=== PATIENT | female | born 1960 | race Caucasian/White ===

== ENCOUNTER 2017-12-06 00:30 | Outpatient (CLI) | payer OTHER, SELFPAY ==
--- NOTE | 2017-12-06 07:50 | DI.MAMMO_ITS ---
SYMPTOM/DIAGNOSIS: SCREENING, Z.12.31 MAMMOGRAMS: Mammograms were interpreted according to the usual protocol including computer analysis with CAD system, tomosynthesis and C view imaging. The breast tissue is of moderate radiodensity. There is no evidence of a mass. There is a tiny oil cyst in the upper outer quadrant of the right breast. There are no suspicious calcifications. SUMMARY: No evidence of malignancy, category 2. Yearly screening mammography is recommended. Breast density, category B. MQSA ASSESSMENT OF FINDINGS: Negative with benign findings. Category 2. Patient will receive a letter notifying them of these results. BI-RADS category B. There are scattered areas of fibroglandular density.
[2017-12-06 09:02] LABS: Cholesterol 194 mg/dL (50-200); HDL Cholesterol 60 mg/dL (40-60); LDL CHOLESTEROL 124 mg/dL (<100); TSH (W/Ref FT4) 2.31 uIU/mL (0.358-3.74); Triglyceride 47 mg/dL (30-150)
== END 2017-12-06 00:50 ==
PROVIDERS: PCP Nurse Practitioner Gerontology
DX: Z12.31 Encounter for screening mammogram for malignant neoplasm of breast (principal); E78.5 Hyperlipidemia, unspecified; E03.9 Hypothyroidism, unspecified; R53.83 Other fatigue; R00.2 Palpitations
CPT/HCPCS: 36415; 77063; 77067; 80061; 83721; 84443

== ENCOUNTER 2018-05-14 12:41 | Outpatient (REF) | payer OTHER, SELFPAY | END 2018-05-14 13:01 | LOC: LBN 12:41 | DX: J06.9 Acute upper respiratory infection, unspecified (principal) | CPT/HCPCS: 87449 ==

== ENCOUNTER 2018-11-29 12:12 | Outpatient (REF) | payer OTHER, SELFPAY ==
--- NOTE | 2018-11-29 11:30 | PAPFT_PTH ---
PATIENT: Valery Hendrix LOC: [facility] U#:[id number] AGE/SX: 58/F ROOM: RE11/29/[address]: Dea Morse, PhD COMPUTED TOMOGRAPHY TECHNICIAN : 1960 BED: DIS: 11/29/2018 SPEC #: [id number] RECD: 11/29/18 13:00 STATUS: NAYE REQ #: [id number] VICKIE: 11/29/18 11:[address]: Dea Morse DEPT: [facility] Cytology RECD BY: Destiney Bray ENTERED: 11/29/18 13:01 SP TYPE: PAPFT OTHR DR: Nicole Long APRN Tissues: 1 - CX/ENDOCX FOR PAP SMEARS Procedures: PAP THIN PREP/UVM Screening Comments: [id number] (CHLAMYDIA/GC) (VAGINAL HPV SENT TO [facility])
[2018-12-02 14:06] LABS: Chlamydia Result Negative; GC Result Negative; Specimen Description SEE COMMENTS
[2018-12-06 21:26] LABS: HPV High Risk type 16, PCR Negative (Negative); HPV High Risk type 18, PCR Negative (Negative); HPV other High Risk types, PCR Negative (Negative); Specimen Source VAGINAL
== END 2018-11-29 12:32 ==
LOC: LBN 12:12
PROVIDERS: Visit Provider Nurse Practitioner
DX: Z12.4 Encounter for screening for malignant neoplasm of cervix (principal); Z11.3 Encounter for screening for infections with a predominantly sexual mode of transmission; Z11.51 Encounter for screening for human papillomavirus (HPV)
CPT/HCPCS: 87491; 87591; 87624; 88142

== ENCOUNTER 2018-12-19 02:07 | Outpatient (CLI) | payer OTHER, SELFPAY ==
[2018-12-19 09:25] LABS: Calculated LDL 142 mg/dL; Cholesterol 214 mg/dL (50-200); HDL Cholesterol 59 mg/dL (40-60); TSH 2.58 uIU/mL (0.36-3.74); Triglyceride 69 mg/dL (30-150)
[2018-12-19 10:20] LABS: Hemoglobin A1C 5.7 % (4.5-6.2)
== END 2018-12-19 02:27 ==
PROVIDERS: PCP Nurse Practitioner; Visit Provider Nurse Practitioner
DX: Z13.1 Encounter for screening for diabetes mellitus (principal); E03.9 Hypothyroidism, unspecified; Z13.6 Encounter for screening for cardiovascular disorders
CPT/HCPCS: 36415; 80061; 83036; 84443

== ENCOUNTER 2019-01-06 00:54 | Outpatient (CLI) | payer OTHER, SELFPAY ==
--- NOTE | 2019-01-06 08:38 | DI.MAMMO_ITS ---
EXAM: MG MAMMO SCREENING CLINICAL HISTORY: screening, Z12.39 TECHNIQUE: Bilateral full field digital CC and MLO mammographic images were obtained with 3D tomosyn thesis and utilizing computer aided detection (CAD). COMPARISON: Available for comparison. FINDINGS: Masses/Architectural Distortion: None seen. Microcalcifications: No suspicious pleomorphic-type are seen. Skin Thickening/Nipple Retraction: None. IMPRESSION: 1. No significant interval change with no specific features of malignancy noted. 2. Unless there is more urgent need, screening mammography is recommended, as per [place] [employer] guidelines. ACR BI-RAD Category- 1 Negative Breast Density - Category B - Scattered areas of fibroglandular density A negative radiographic report should not delay biopsy if a dominant or clinically suspicious mass is present. Up to ten percent of cancers are not identified on mammography. A negative report may reinforce clinical impression. Adenosis and dense breasts may obscure an underlying neoplasm. False positive reports average 6 to 10%. Patient will receive a letter notifying them of these results.
== END 2019-01-06 01:14 ==
PROVIDERS: PCP Nurse Practitioner; Visit Provider Nurse Practitioner
DX: Z12.31 Encounter for screening mammogram for malignant neoplasm of breast (principal)
CPT/HCPCS: 77063; 77067

== ENCOUNTER 2019-01-20 01:04 | Outpatient (CLI) | payer OTHER, SELFPAY ==
--- NOTE | 2019-01-20 16:24 | DI.DEXA_ITS ---
EXAM: XR DEXA BONE DENSITY W/WO KULDIP INDICATION: screen osteoporosis, Z13.820, preventative health care. COMPARISON: No exams were available for comparison FINDINGS: The KULDIP image shows no evidence of compression fractures. The bone mineral density measurements of t he lumbar spine correspond to a total T-score of -1.8, in the osteopenic range. The bone mineral den sity measurements of the left hip correspond to a total T-score of -1.4 and a femoral neck T-score of -2.4, in the osteopenic range. The bone mineral density measurements of the left forearm correspond to a T-score of the distal 3rd of -0.5, in the normal range. IMPRESSION: Osteopenia of the lumbar spine and left hip. Normal bone mineral density of the left forearm.
== END 2019-01-20 01:24 ==
PROVIDERS: PCP Nurse Practitioner; Visit Provider Nurse Practitioner
DX: Z00.00 Encounter for general adult medical examination without abnormal findings (principal); M85.88 Other specified disorders of bone density and structure, other site
CPT/HCPCS: 77080

== ENCOUNTER 2019-12-22 03:35 | Outpatient (CLI) | payer MEDICAID, SELFPAY ==
[2019-12-24 22:07] LABS: Patient Race White; SARS-CoV-2 RNA Undetected (Undetected); SARS-CoV-2 Specimen Source Nasal
== END 2019-12-22 03:55 ==
PROVIDERS: PCP Nurse Practitioner; Visit Provider Nurse Practitioner
DX: Z11.59 Encounter for screening for other viral diseases (principal)
CPT/HCPCS: U0003

== ENCOUNTER 2020-02-17 02:29 | Outpatient (CLI) | payer MEDICAID, SELFPAY ==
[2020-02-17 08:47] LABS: Hemoglobin A1C 5.3 % (<5.7)
[2020-02-17 09:32] LABS: CREATININE 0.73 mg/dL (0.55-1.02); Calculated LDL 139 mg/dL (<100); Cholesterol 218 mg/dL (<200); HDL Cholesterol 60 mg/dL (40-60); TSH 2.06 uIU/mL (0.36-3.74); Triglyceride 99 mg/dL (<150)
== END 2020-02-17 02:49 ==
PROVIDERS: PCP Nurse Practitioner; Visit Provider Nurse Practitioner
DX: E03.9 Hypothyroidism, unspecified (principal); Z13.6 Encounter for screening for cardiovascular disorders; Z13.1 Encounter for screening for diabetes mellitus; Z13.220 Encounter for screening for lipoid disorders
CPT/HCPCS: 36415; 80061; 82565; 83036; 84443

== ENCOUNTER 2020-02-18 03:05 | Outpatient (CLI) | payer MEDICAID, SELFPAY ==
--- NOTE | 2020-02-18 15:51 | DI.MAMMO_ITS ---
EXAM: MG MAMMO SCREENING CLINICAL HISTORY: screening,Z12.39. TECHNIQUE: Bilateral full field digital CC and MLO mammographic images were obtained with 3D tomosyn thesis and utilizing computer aided detection (CAD). COMPARISON: Prior mammograms dating back to 2010, the most recent being January 2019. FINDINGS: There are no CAD designations. Benign peripherally calcified oil cyst is again noted anteriorly in the right breast. This has been present since 2016. there is no significant architectural distortion nor skin thickening-retraction. IMPRESSION: No radiographic evidence of malignancy. BI-RADS Category 1 - Negative Breast Density - Category B - Scattered areas of fibroglandular density Breast density Category C or D implies that the patient has dense breast tissue. Dense breast tissue can make it harder to find cancer on a mammogram. Dense breast tissue is also associated with an incr eased risk of breast cancer. This information about the result of the mammogram report was provided to the patient to raise their awareness. Use this report when you speak with the patient about their risks for breast cancer, which includes their family history. At that time, you may recommend additional screening tests (Ultrasoun d or MRI) as these tests may add significant information. A negative radiographic report should not delay biopsy if a dominant or clinically suspicious mass is present. Up to ten percent of cancers are not identified on mammography. A negative report may reinforce clinical impression. Adenosis and dense breasts may obscure an underlying neoplasm. False positive reports average 6 to 10%. Patient will receive a letter notifying them of these results.
== END 2020-02-18 03:25 ==
PROVIDERS: PCP Nurse Practitioner; Visit Provider Nurse Practitioner
DX: N60.01 Solitary cyst of right breast (principal); Z12.39 Encounter for other screening for malignant neoplasm of breast
CPT/HCPCS: 77063; 77067

== ENCOUNTER 2020-03-16 06:44 | Day surgery (SDC) | payer MEDICAID, SELFPAY ==
[2020-03-16 07:23] VITALS: BP 132/78; PULSE 80; RESP 16; TEMP 36.4; O2SAT 99
--- NOTE | 2020-03-16 07:30 | PDOC.DSDIS_ITS ---
Discharge Plan Disposition Patient Disposition: HOME Condition: Good Discharge Details Reason For Visit: Right middle and ring trigger fingers Attending Provider: Yony Null Primary Care Provider: Dea Morse Home Meds and New Rx's Prescriptions: Continued ibuprofen 600 mg tablet 600 mg PO QID PRN (Reason: pain/fever) Qty: 120 RF: 0 lorazepam 0.5 mg tablet 0.5 mg PO QHS PRN (Reason: anxiety) Qty: 30 RF: 0 lisinopril 10 mg tablet 10 mg PO DAILY Qty: 30 RF: 0 levothyroxine 50 mcg tablet 50 mcg PO DAILY Qty: 90 RF: 4 calcium 600 mg Capsule 1,200 mg PO RF: 0 melatonin 3 mg Tablet 3 mg PO HS PRNRF: 0 Discharge Instructions Stand Alone Forms: Tennille Howard Finger Release Referrals: Yony Null MD [ [facility] STAFF PHYSICIAN] - Activity:: Elevate Remove Dressings/Wound Care:: 48 hours Shower/Bathe:: 48 hours Diet:: As Tolerated Discharge Orders Discharge Orders: Discharge Order (Routine); Ordered 03/16/20 Ordered By: Karen Shukla DS: Diagnosis Discharge Diagnosis (1) Trigger finger: Status: Acute
[2020-03-16] MEDS: Sodium Bicarbonate 50 MEQ/50 ML VIAL (08:10)
--- NOTE | 2020-03-16 08:30 | ROE_ITS ---
Date of service: 03/16/20 Time of Service: 08:30 Operative Note Operative Note DATE OF PROCEDURE: 03/16/20 PRE-OP DIAGNOSIS: Left Middle and Ring Finger Trigger Fingers POST-OP DIAGNOSIS: same PROCEDURE: Trigger Finger Release - Left Middle and Ring Fingers SURGEON: Yony Null ANESTHESIA: local ESTIMATED BLOOD LOSS: 5 PATHOLOGY: none sent COMPLICATIONS: None Patient was transported to: same day Patient's condition: stable Indications: I have seen Saskai in clinic for symptoms of a trigger finger. The catching, clicking, locking, and pain limited function. The diagnosis of trigger finger of the middle and ring fingers was evident. The symptoms had not responded to conservative measures. I discussed trigger finger release with the patient. I reviewed the risks of the procedure to include, but not limited to, bleeding, infection, pain, stiffness, incomplete release, damage to nerves or vessels, continued catching, recurrence. Despite these risks, the patient elected to proceed. Findings: There was a tightened A1 vanessa which was released. The flexor tendons were inspected and the patient was able to move the finger without any catching, clicking, or locking. Procedure Description: Saskia was greeted in the preoperative holding area where the correct side was identified and marked. The consent was reviewed with the patient and signed. All questions were answered. She was taken back to the operating room. The patient was placed into the supi ne position on the operating room table with the right arm on an arm board. All bony prominences were well padded. No prophylactic antibiotics were administered since this was a clean, elective hand surgical case. The right arm was then prepped with Chloraprep and draped in a standard fashion with stockinette and extremity drape. A timeout to confirm correct identity, side and site, procedure, allergies, anesthesia, and medical concerns was performed. The surgical site was marked as a longitudinal incision directly over the A1 vanessa of the involved digit. This was confirmed with palpation during finger flexion. This area, overlying the metacarpal heads of the ring and middle fingers, was then anesthetized with 1% Lidocaine. The patient tolerated this well and once the anesthetic had setup, the procedure began. She was very anxious and squirming during all parts, including injection, although she denied any pain. Starting with the ring finger, a longitudinal incision was made through skin only, approximately 1cm. The deep tissues were dissected bluntly. Once the A1 vanessa and flexor tendons were identified the soft tissue including neurovascular structures were retracted medially and laterally. There were no crossing structures over the A1 vanessa. The proximal edge of the vanessa was identified and the vanessa was incised with tenotomy scissors. There was a relea se of the tendons once this was fully released. The tendons were then removed from the wound and inspected. The tendons were then returned and the patient was asked to move the finger into deep flexion and back to extension. She had a hard time making a fist but I was able to passively assist her motion and there was no recreation of the pre-operative symptoms. The hand was then once more inspected for any A0 vanessa or area of possible constriction. Attention was then turned to the middle finger. A longitudinal incision was made through skin only, approximately 1cm. The deep tissues were dissected bluntly. Once the A1 vanessa and flexor tendons were identified the soft tissue including neurovascular structures were retracted medially and laterally. There were no crossing structures over the A1 vanessa. The proximal edge of the vanessa was identified and the vanessa was incised with tenotomy scissors. There was a release of the tendons once this was fully released. The tendons were then removed from the wound and inspected. Excess synovium was resected. The tendons were then returned and the patient was asked to move the finger into deep flexion and back to extension. There was no recreation of the pre- operative symptoms. The hand was then once more inspected for any A0 vanessa or area of possible constriction. The wound was then irrigated and the skin was closed with a 4-0 Nylon. This was dressed with gauze and a Conform dressing. The patient tolerated the procedure well and was returned to the Same Day Surgery area in a stable condition suffering no known complication.
== END 2020-03-16 08:59 | disposition home or self-care (01) ==
PROVIDERS: PCP Nurse Practitioner; Visit Provider Student in an Organized Health Care Education/Training Program
PROC: (CPT 26055; principal; 2020-03-16 08:15)
DX: M65.331 Trigger finger, right middle finger (principal); M65.341 Trigger finger, right ring finger
CPT/HCPCS: 26055

== ENCOUNTER 2021-01-12 02:32 | Outpatient (CLI) | payer MEDICAID, SELFPAY ==
[2021-01-12 10:50] LABS: CREATININE 0.8 mg/dL (0.55-1.02); Calculated LDL 183 mg/dL (<100); Cholesterol 256 mg/dL (<200); HDL Cholesterol 60 mg/dL (40-60); Potassium 4.2 mmol/L (3.5-5.1); TSH 2.81 uIU/mL (0.36-3.74); Triglyceride 69 mg/dL (<150)
== END 2021-01-12 02:33 | disposition home or self-care (01) ==
LOC: LBO 02:32
PROVIDERS: PCP Nurse Practitioner; Visit Provider Nurse Practitioner
DX: I10 Essential (primary) hypertension (principal); Z13.6 Encounter for screening for cardiovascular disorders; E03.9 Hypothyroidism, unspecified
CPT/HCPCS: 36415; 80061; 82565; 84132; 84443

== ENCOUNTER 2021-03-02 00:53 | Outpatient (CLI) | payer MEDICAID, SELFPAY ==
--- NOTE | 2021-03-02 11:20 | DI.MAMMO_ITS ---
Exam(s) MAMMO SCREENING EXAM: MAMMO SCREENING CLINICAL HISTORY: screening, Z12.39. TECHNIQUE: Bilateral full field digital CC and MLO mammographic images were obtained with 3D tomosyn thesis and utilizing computer aided detection (CAD). COMPARISON: Prior mammograms were reviewed, the most recent being February 2020. FINDINGS: There are no new spiculated masses nor malignant appearing microcalcification groups. Peripherally calcified oil cyst in the right breast is unchanged. There is no significant architectural distortion nor skin thickening-retraction. IMPRESSION: No radiographic evidence of malignancy. BI-RADS Category 1 - Negative Breast Density - Category B - Scattered areas of fibroglandular density Breast density Category C or D implies that the patient has dense breast tissue. Dense breast tissue can make it harder to find cancer on a mammogram. Dense breast tissue is also associated with an incr eased risk of breast cancer. This information about the result of the mammogram report was provided to the patient to raise their awareness. Use this report when you speak with the patient about their risks for breast cancer, which includes their family history. At that time, you may recommend additional screening tests (Ultrasoun d or MRI) as these tests may add significant information. A negative radiographic report should not delay biopsy if a dominant or clinically suspicious mass is present. Up to ten percent of cancers are not identified on mammography. A negative report may reinforce clinical impression. Adenosis and dense breasts may obscure an underlying neoplasm. False positive reports average 6 to 10%. Patient will receive a letter notifying them of these results.
== END 2021-03-02 01:13 ==
PROVIDERS: PCP Nurse Practitioner; Visit Provider Nurse Practitioner
DX: Z12.31 Encounter for screening mammogram for malignant neoplasm of breast (principal)
CPT/HCPCS: 77063; 77067

== ENCOUNTER 2021-12-29 09:38 | Emergency (ER) | payer MEDICAID, SELFPAY ==
[2021-12-29 09:39] VITALS: BP 135/75; PULSE 85; RESP 17; TEMP 36.8; O2SAT 98
--- NOTE | 2021-12-29 09:45 | DI.CT_ITS ---
Exam(s) CT HEAD WO EXAM: CT HEAD WO CLINICAL HISTORY: Headache. TECHNIQUE: Imaging Protocol: Axial computed tomography images with coronal and sagittal reformatted images were created and reviewed COMPARISON: No exams were available for comparison FINDINGS: The ventricular system is normal in appearance. No evidence of acute intracranial hemorrhage, mass effect, or midline shift. The orbital structures are unremarkable. The temporal bone structures appear intact. Calvarium: Normal. Visualized Paranasal sinuses/Mastoids: Clear. IMPRESSION: Normal cranial CT. RADIATION DOSE DELIVERED: Total DLP Total DLP DATA REPOSITORY: All CT scans at this facility are submitted to the National Radiology Data Registry (NRDR) Dose Index Registry (DIR) with the [employer] (ACR). RADIATION OPTIMIZATION: All CT scans at this facility use at least one of these dose optimization te chniques: automated exposure control; mA and/or kV adjustment per patient size (includes targeted exa ms where dose is matched to clinical indication); or iterative reconstruction.
--- NOTE | 2021-12-29 09:57 | W.ED.GENAD ---
Discharge Plan Disposition Patient Disposition: Home Condition: Stable Discharge Details Clinical Impression: Headache Primary Care Provider: Dea Morse ED Provider: Vandana Tejeda Home Meds and New Rx's Prescriptions: Continued ibuprofen 600 mg tablet 600 mg PO QID PRN (Reason: pain/fever) Qty: 120 0RF amlodipine 10 mg tablet 10 mg PO DAILY Qty: 90 4RF Hold Instructions: start holding 07/19/20 to see if Lisinopril will control BP hydrochlorothiazide 25 mg tablet 25 mg PO DAILY Qty: 90 4RF Hold Instructions: start holding 07/19/20 to see if Lisinopril control BP levothyroxine 50 mcg tablet 50 mcg PO DAILY Qty: 90 4RF metoprolol succinate 50 mg tablet extended release 24 hr 50 mg PO DAILY Qty: 90 3RF lorazepam 0.5 mg tablet 0.5 mg PO QHS PRN (Reason: anxiety) Qty: 30 0RF calcium 600 mg Capsule 1,200 mg PO melatonin 3 mg Tablet 3 mg PO HS PRN Discharge Instructions Instructions: General Headache (ED) Additional Instructions: Please discuss your headaches with your primary care provider. Discharge keep a headache journal. Headaches can be caused by hormones, lack of sleep, stress and other things. CT of your head is within normal limits. Follow up with primary care provider in 3-5 days. Return to ED sooner if any worsening or concerns. Increase oral fluids. Please take Tylenol or Ibuprofen with food every 4-6 hours as needed for pain and swelling. Referrals: Dea Morse, SOFTWARE DATABASE ARCHITECT [Primary Care Provider] - 5 days Discharge Data Discharge Date/Time-TO BE ENTERED AT DEPARTURE: 12/29/21 10:52 Medical Decision Making 61-year-old female presents to the ER with chief complaint of headache. Patient reports that she woke up at 6 AM this morning with a right posterior occipital headache which radiates to her right parietal and temporal scalp and into her right eye. She has no neurodeficits. She denies any nausea vomiting, no visual disturbances no history of head trauma. She reports this has been on and off for the last few weeks. No history of migraines. She reports that the headache is gone at this moment after taking some ibuprofen. CT head ordered. CT WNL. Kayden results with patient who verbalized understanding. Discussed keeping a headache journal and following up with her primary care provider. Discussed red flags on which to return to the ER. This text was generated using RunTitle dictation system, please disregard any oddities of phrase or misspellings. Medical Records Medical records reviewed: Yes I reviewed the patient's medical records. Imaging Data Radiologic Study: Imaging: CT Scan Radiologist's impression: FINDINGS: Brain: Normal. No hemorrhage. Unremarkable white matter. No mass effect. Cerebral ventricles: No ventriculomegaly. Paranasal sinuses: Visualized sinuses are unremarkable. No fluid levels. Mastoid air cells: Visualized mastoid air cells are well aerated. Bones/joints: Unremarkable. No acute fracture. Soft tissues: Unremarkable. IMPRESSION: No acute intracranial abnormality. Thank you for allowing us to participate in the care of your patient. Dictated and Authenticated by: Shannon Garvin MD Sign Out No HPI General Mode of arrival: ambulatory. Date/Time Provider Initiated Documentation: 12/29/21 09:45. Limitations to Documentation: no limitations. Information obtained by: patient, RN notes reviewed and old records reviewed. HPI Narrative: 61-year-old female presents to the ER with chief complaint of headache. Patient reports that she woke up at 6 AM this morning with a right posterior occipital headache which radiates to her right parietal and temporal scalp and into her right eye. She has no neurodeficits. She denies any nausea vomiting, no visual disturbances no history of head trauma. She reports this has been on and off for the last few weeks. No history of migraines. She reports that the headache is gone at this moment after taking some ibuprofen. No focal neurodeficits noted. Related Data Home Medications Medication Instructions Recorded Confirmed ibuprofen 600 mg tablet 600 mg PO QID PRN pain/fever #120 05/14/18 01/20/21 tabs calcium 600 mg capsule 1,200 mg PO 03/16/20 01/20/21 melatonin 3 mg tablet 3 mg PO HS PRN 03/16/20 01/20/21 amlodipine 10 mg tablet 10 mg PO DAILY #90 tabs 01/20/21 01/20/21 hydrochlorothiazide 25 mg tablet 25 mg PO DAILY #90 tabs 01/20/21 01/20/21 levothyroxine 50 mcg tablet 50 mcg PO DAILY #90 tab-caps 01/20/21 01/20/21 lorazepam 0.5 mg tablet 0.5 mg PO QHS PRN anxiety #30 tabs 01/20/21 01/20/21 metoprolol succinate 50 mg 50 mg PO DAILY #90 tabs 01/20/21 01/20/21 tablet,extended release 24 hr Previous Rx's Medication Instructions Recorded ibuprofen 600 mg tablet 600 mg PO QID PRN pain/fever #120 05/14/18 tabs amlodipine 10 mg tablet 10 mg PO DAILY #90 tabs 01/20/21 hydrochlorothiazide 25 mg tablet 25 mg PO DAILY #90 tabs 01/20/21 levothyroxine 50 mcg tablet 50 mcg PO DAILY #90 tab-caps 01/20/21 lorazepam 0.5 mg tablet 0.5 mg PO QHS PRN anxiety #30 tabs 01/20/21 metoprolol succinate 50 mg 50 mg PO DAILY #90 tabs 01/20/21 tablet,extended release 24 hr Allergies Allergy/AdvReac Type Severity Reaction Status Date / Time lisinopril AdvReac Mild cough Verified 01/20/21 13:18 General Stated Complaint: Headache FRITZ: 4 Review of Systems All systems reviewed & are unremarkable except as noted in HPI and below Constitutional Constitutional: Reports as per HPI, Denies fever(s) and Reports headache(s) ENT Ears, Nose, Mouth, and Throat: Reports headache(s) Neurologic Neurologic: Reports headache(s) PFSH All Active Problems (Updated 12/29/21 @ 10:46 by Vandana Tejeda NP) Headache (Acute) GERD (gastroesophageal reflux disease) (Chronic) Trigger finger (Acute) Right ring trigger finger Right middle trigger finger S/P release of both fingers: 03/16/2020 Hyperlipidemia (Acute) CVR4.7% 02/2020. 5.18% 01/25 HTN (hypertension) (Chronic) Vaginal dryness (Acute 05/05/15) Panic attacks (Acute) Palpitations (Acute) Hypothyroidism (Acute 01/13/13) Anxiety (Chronic 01/13/13) Medical History Carpal tunnel syndrome right surgically corrected bilateral Female infertility Surgical History section Diagnostic Laproscopy for pelvic pain Open Carpal Tunnel release right,left Family History Mother Essential hypertension Hyperlipidemia Father , AGE 64 Diabetes Heart disease Prostate cancer Sister No problems noted. Brother , 60 Stroke Hypertension COPD (chronic obstructive pulmonary disease) Brother No problems noted. Daughter No problems noted. Maternal Grandfather No problems noted. Paternal Grandfather No problems noted. Maternal Grandmother , age 62 Stroke Paternal Grandmother , age 83 No problems noted. Social History Smoking/Tobacco Use Status: Never Second Hand Exposure: Yes Smoking risk assessment performed?: Yes Alcohol Intake: current Alcohol Intake frequency: a few times a month Alcohol type: beer, wine and hard liquor Drug use: Never Substance use type: does not use Caregiver/Support person: No Household members: spouse Housing: house Communication Needs: None Do you need help understanding health information?: Never current occupation: CUSTOMER SERVICE Pets and animals: No Sexually active: No Do you think of yourself as: straight/heterosexual Current gender identity: female What is your relationship status?: How often do you talk on the phone with friends or family?: three or more times per week How often do you get together with friends or relatives?: twice per week How often do you attend anabaptism or anglican services?: decline to answer Do you belong to any clubs or organized social groups?: no Panel score (0-1 are the most socially isolated patients): 2 What type of physical activity do you participate in: decline to answer Duration: < 15 minutes/day Frequency: daily Angeline/Evangelical: None Special angeline needs: No Seatbelt use: always Drive intox or ride w/intox pile driver operator: No Do you feel safe at home: Yes Do you feel safe in your relationship?: Yes Victim of physical abuse: No Victim of emotional abuse: No Victim of sexual abuse: No Would you like helpful sources: No Exam Narrative Exam Narrative: Constitutional: Alert and oriented x3. Appears stated age. Normal body habitus. Head: Normocephalic, no trauma. Eyes: Pupils PERRL, Red reflex noted, EOM's intact. Eyelids symmetrical without lesions, discharge, or swelling. ENT: Bilateral TM's WNL, External ear normal to inspection, no mastoid TTP, swelling, or erythema, Nasal turbinates WNL, no nasal discharge. Normal dentition, Posterior pharynx WNL, no exudate. Chest: RRR, Normal S1, S2, distal pulses intact. Resp: Lungs clear to auscultation bilaterally, no wheezes, rales, or rhonchi. Abdomen: Soft, non-distended, Normoactive bowel sounds all 4 quads. Musculoskeletal: Normal gait, 5/5 strength to all four extremities. Skin: No suspicious rashes or lesions. Capillary refill less than 2 sec. Neurologic: Cranial nerves II-XII intact. Alert and oriented x 3. Motor: No deficits noted. Sensory: Intact bilaterally all 4 extremities. Reflexes: DTR's intact bilaterally.. Hematologic/Lymphatic: No ecchymosis, no lymphadenopathy. Course Vital Signs Vital signs: Vital Signs Temperature 36.8 C 12/29/21 09:39 Pulse 85 12/29/21 09:39 Respiratory Rate 17 12/29/21 09:39 Blood Pressure 135/75 12/29/21 09:39 Pulse Oximetry 98 12/29/21 09:39 Temperature 36.8 C 12/29/21 09:39 Temperature Source Temporal Artery Scan 12/29/21 09:39 Pulse 85 12/29/21 09:39 Respiratory Rate 17 12/29/21 09:39 Respiratory Effort 12/29/21 09:44 Blood Pressure 135/75 12/29/21 09:39 Blood Pressure Position Sitting 12/29/21 09:39 Pulse Oximetry 98 12/29/21 09:39 Oxygen Delivery Method Room Air 12/29/21 09:39 Oxygen Flow Rate 0 12/29/21 09:39 Pain Level 0 12/29/21 09:44
--- NOTE | 2021-12-29 10:41 | DI.VRAD_ITS ---
PROCEDURE INFORMATION: Exam: CT Head Without Contrast Exam date and time: 12/29/2021 10:09 AM Age: 61 years old Clinical indication: Pain; Headache TECHNIQUE: Imaging protocol: Computed tomography of the head without contrast. COMPARISON: No relevant prior studies available. FINDINGS: Brain: Normal. No hemorrhage. Unremarkable white matter. No mass effect. Cerebral ventricles: No ventriculomegaly. Paranasal sinuses: Visualized sinuses are unremarkable. No fluid levels. Mastoid air cells: Visualized mastoid air cells are well aerated. Bones/joints: Unremarkable. No acute fracture. Soft tissues: Unremarkable. IMPRESSION: No acute intracranial abnormality. Dictated and Authenticated by: Shannon Garvin MD. Ordering:AIMEE Ross MD
== END 2021-12-29 10:52 | disposition home or self-care (01) ==
PROVIDERS: Emergency Provider Registered Nurse Emergency; PCP Nurse Practitioner
DX: R51.9 Headache, unspecified (principal)
CPT/HCPCS: 99284; 70450; 99283

== ENCOUNTER 2022-01-27 00:57 | Outpatient (CLI) | payer MEDICAID, SELFPAY ==
[2022-01-27 12:21] LABS: HCT 38.9 % (36.0-46.0); MCH 27.9 pg (27.0-33.0); MCHC 33.4 % (32.0-36.0); MCV 84 fL (80-95); MPV 12.2 fL (8.0-11.0); Platelet Count 262 10^3/uL (130-400); RBC 4.66 10^6/uL (3.93-5.22); RDW 13.4 % (11.7-14.6); WBC 6.68 10^3/uL (4.4-10.8)
[2022-01-27 12:48] LABS: Hemoglobin A1C 5.3 % (<5.7)
[2022-01-27 13:02] LABS: ALT 36 U/L (14-59); AST 25 U/L (15-37); Albumin 4.1 g/dL (3.4-5.0); Alkaline Phosphatase 94 U/L (46-116); Anion Gap 6.6 mmol/L (3-11); BUN 21 mg/dL (7-18); Bilirubin, Total 0.3 mg/dL (0.2-1.0); CO2 32.4 mmol/L (21.0-32.0); CREATININE 0.8 mg/dL (0.55-1.02); Calcium 9.7 mg/dL (8.5-10.1); Calculated LDL 69 mg/dL (<100); Chloride 102 mmol/L (98-107); Cholesterol 146 mg/dL (<200); Glucose 90 mg/dL (74-106); HDL Cholesterol 61 mg/dL (40-60); Sodium 141 mmol/L (136-145); TSH (W/Ref FT4) 1.49 uIU/mL (0.36-3.74); Total Protein 7.9 g/dL (6.4-8.2); Triglyceride 81 mg/dL (<150)
== END 2022-01-27 00:58 | disposition home or self-care (01) ==
LOC: LOS 00:57
PROVIDERS: PCP Nurse Practitioner Family; Visit Provider Nurse Practitioner Family
DX: I10 Essential (primary) hypertension (principal); E03.9 Hypothyroidism, unspecified; F41.8 Other specified anxiety disorders; E78.5 Hyperlipidemia, unspecified; R00.2 Palpitations; K21.9 Gastro-esophageal reflux disease without esophagitis; R51.9 Headache, unspecified
CPT/HCPCS: 36415; 80053; 80061; 85027; 83036; 84443

== ENCOUNTER 2022-05-11 02:28 | Outpatient (CLI) | payer MEDICAID, SELFPAY ==
--- NOTE | 2022-05-11 06:30 | DI.MAMMO_ITS ---
Exam(s) MAMMO SCREENING EXAM: MAMMO SCREENING CLINICAL HISTORY: screening,z12.39. TECHNIQUE: Bilateral full field digital CC and MLO mammographic images were obtained with 3D tomosyn thesis and utilizing computer aided detection (CAD). COMPARISON: Prior mammograms were reviewed. FINDINGS: There has been no significant change in the appearance and distribution of the fibroglandular tissue. There are no CAD designations. There are no new spiculated masses nor malignant appearing microcalcification groups. Benign peripherally calcified oil cyst in the right breast is again noted. There is no significant architectural distortion nor skin thickening-retraction. IMPRESSION: No radiographic evidence of malignancy. BI-RADS Category 1 - Negative Breast Density - Category B - Scattered areas of fibroglandular density Breast density Category C or D implies that the patient has dense breast tissue. Dense breast tissue can make it harder to find cancer on a mammogram. Dense breast tissue is also associated with an incr eased risk of breast cancer. This information about the result of the mammogram report was provided to the patient to raise their awareness. Use this report when you speak with the patient about their risks for breast cancer, which includes their family history. At that time, you may recommend additional screening tests (Ultrasoun d or MRI) as these tests may add significant information. A negative radiographic report should not delay biopsy if a dominant or clinically suspicious mass is present. Up to ten percent of cancers are not identified on mammography. A negative report may reinforce clinical impression. Adenosis and dense breasts may obscure an underlying neoplasm. False positive reports average 6 to 10%. Patient will receive a letter notifying them of these results.
== END 2022-05-11 02:48 ==
LOC: DI 02:29
PROVIDERS: PCP Nurse Practitioner Family; Visit Provider Nurse Practitioner Family
DX: Z12.31 Encounter for screening mammogram for malignant neoplasm of breast (principal); N60.01 Solitary cyst of right breast
CPT/HCPCS: 77063; 77067

== ENCOUNTER 2022-11-20 09:09 | Day surgery (SDC) | payer MEDICAID, SELFPAY ==
--- NOTE | 2022-11-19 16:33 | W.PM.DSUDISC ---
Date of service: 11/20/22 Time of Service: 11:24 Discharge Plan Disposition Patient Disposition: Home Condition: Good Discharge Details Reason For Visit: Screening colonoscopy Attending Provider: Valdez Dykes Primary Care Provider: Everett Sosa Home Meds and New Rx's Prescriptions: Continued ibuprofen 600 mg tablet 600 mg PO QID PRN (Reason: pain/fever) Qty: 120 0RF lorazepam 0.5 mg tablet 0.5 mg PO QHS PRN (Reason: anxiety) Qty: 30 0RF levothyroxine 50 mcg tablet 50 mcg PO DAILY Qty: 90 4RF cholecalciferol (vitamin D3) 50 mcg (2,000 unit) capsule 50 mcg PO DAILY magnesium 250 mg tablet 250 mg PO DAILY hydrochlorothiazide 25 mg tablet 25 mg PO DAILY Qty: 90 4RF Hold Instructions: start holding 07/19/20 to see if Lisinopril control BP amlodipine 10 mg tablet 10 mg PO DAILY Qty: 90 4RF Hold Instructions: start holding 07/19/20 to see if Lisinopril will control BP metoprolol succinate 50 mg tablet extended release 24 hr 50 mg PO DAILY Qty: 90 3RF simvastatin 20 mg tablet 20 mg PO QHS Qty: 90 3RF calcium 600 mg Capsule 1,200 mg PO DIRECTED melatonin 3 mg Tablet 3 mg PO HS PRN acetaminophen [Acetaminophen Extra Strength] 500 mg tablet 1,000 mg PO ONCE Discontinued polyethylene glycol 3350 17 gram/dose powder 238 g PO ONCE Qty: 238 0RF Rx Instructions: take per colonoscopy instructions bisacodyl [Dulcolax (bisacodyl)] 5 mg tablet,delayed release (DR/EC) 5 mg PO ONCE Qty: 4 0RF Rx Instructions: take per colonoscopy instructions Discharge Instructions Instructions: Colorectal Polyps (GEN) Additional Instructions: Valery, we were able to complete your colonoscopy without any difficulties today. As you probably recall, I mentioned that I did remove a polyp. It was quite small. I removed it completely. I will certainly be in touch when I have the results of the polyp report. In the meantime, if you have any questions at all please do not hesitate to call. 1. If tolerated, consume a soft, low fiber diet for 1-2 days. 2[address] Do not drive, drink alcohol, operate machinery, make critical decisions, or do activities that require coordination or balance for 24 hours. 3. Because air was put into your colon during the procedure, expelling air from your rectum (passing gas or farting) is normal. 4. You may not have a bowel movement for 1-3 days because of the colonoscopy prep. This is normal. 5. Go directly to the emergency room if you notice any of the following: Develop chills (warm to touch), or if you have a thermometer and your temperature is above 101 Difficulty breathing or difficultly swallowing Persistent vomiting Severe abdominal pain, other than gas cramps Severe chest pain Black, tarry stools Any bleeding ? exceeding one tablespoon 6. Call your physician if the site where your intravenous was started becomes red, swollen, painful, and warm to touch. 7. Your physician has reviewed your pre-procedure medications. Please continue to take those medications as previously ordered. You will be given specific information/education regarding any changes to your medications before leaving. Activity:: Activity as Tolerated Diet:: As Tolerated Discharge Orders Discharge Orders: Discharge Order (Routine); Ordered 11/19/22 Ordered By: Valdez Dykes DS: Diagnosis Discharge Diagnosis (1) Screen for colon cancer: Status: Acute Asessment and Plan: I will follow-up on polypectomy results
--- NOTE | 2022-11-19 16:35 | W.COLOREPORT ---
Date of service: 11/20/22 Time of Service: 11:25 Colonoscopy Report Date of procedure: 11/20/22 Pre-op diagnosis general: Screening colonoscopy and internal hemorrhoids Post-op diagnosis procedure note: other (Rectal polyp) Procedure: Colonoscopy with polypectomy Surgeon: Valdez Dykes Anesthesia Type: General:No Airway Estimated blood loss (mL): 3 Pathology: other (0.25 cm rectal polyp) Complications: None Disposition: same day Indications: Valery is a 62 year old woman who needs a screening colonoscopy Prep: Miralax/Dulcolax Procedure Start Time: 10:38 Procedure End Time: 10:52 Retraction Time: 7 Findings: 0.25 cm rectal polyp Procedure Description: After the induction of monitored anesthetic care, and with the patient in left lateral decubitus position, I began by performing an external anorectal exam.? Perineum and skin were normal, as was the anal verge.? There was no evidence of external hemorrhoids.? Next, I performed a digital rectal exam.? I did not appreciate any abnormal findings.? Next, I advanced a colonoscope into the rectal vault.? I performed retroflexion.? There are grade 2 internal hemorrhoids. The hemorrhoid burden is small.? Using insufflation, I then advanced the colonoscope beyond the rectal folds and into the sigmoid colon before advancing towards the cecum.? The quality of the prep was excellent.? The scope was noted to be in the cecum by identification of the ileocecal valve and appendiceal orifice.? I then began withdrawing the colonoscope using repeated irrigation as necessary for full evaluation of the colonic mucosa. ?Once the scope was withdrawn to the level of the rectum, great care was taken to examine portions of the rectal folds.? Within the upper portion of the rectal vault was a 0.25 cm sessile polyp. I removed this with cold forceps. There was minimal bleeding. Finally, the scope was withdrawn and the patient was brought to the same-day surgery recovery unit as the anesthetic wore off. ?The findings and instructions were shared with the patient prior to discharge.
--- NOTE | 2022-11-20 06:18 | W.ANESPRE ---
General Info Date of Service Date Performed: 11/20/22 Height: 5 ft 3 in Weight: 75.977 kg Body Mass Index (BMI): 29.7 Surgical Procedure: Operation Date: 11/20/22 10:40 Proposed Procedure Side Surgeon p Hemorrhoid Banding Valdez Dykes MD Meds Allergies and Home Medications Allergies Allergy/AdvReac Type Severity Reaction Status Date / Time lisinopril AdvReac Mild cough Verified 11/17/22 12:51 Home Medication Medication Instructions Recorded ibuprofen 600 mg tablet 600 mg PO QID PRN pain/fever #120 05/14/18 tabs calcium 600 mg capsule 1,200 mg PO DIRECTED 03/16/20 melatonin 3 mg tablet 3 mg PO HS PRN 03/16/20 lorazepam 0.5 mg tablet 0.5 mg PO QHS PRN anxiety #30 tabs 01/20/21 levothyroxine 50 mcg tablet 50 mcg PO DAILY #90 tab-caps 01/24/22 amlodipine 10 mg tablet 10 mg PO DAILY #90 tabs 05/03/22 hydrochlorothiazide 25 mg tablet 25 mg PO DAILY #90 tabs 05/03/22 metoprolol succinate 50 mg 50 mg PO DAILY #90 tabs 05/03/22 tablet,extended release 24 hr simvastatin 20 mg tablet 20 mg PO QHS #90 tabs 10/30/22 cholecalciferol (vitamin D3) 50 50 mcg PO DAILY 11/09/22 mcg (2,000 unit) capsule magnesium 250 mg tablet 250 mg PO DAILY 11/09/22 acetaminophen 500 mg tablet 1,000 mg PO ONCE 11/20/22 (Acetaminophen Extra Strength) Current Visit Medications: Current Medications Generic Name Dose Route Start Last Admin Trade Name Freq PRN Reason Stop Dose Admin Hyoscyamine Sulfate 0.125 mg 11/19/22 16:37 Hyoscyamine 0.125 Mg Sl/Oral/Chew SL 12/19/22 16:36 DIRECTED PRN Ringer's Solution 1,000 mls @ 80 mls/hr 11/20/22 06:00 IV 11/20/22 23:59 INFUSION PAT IV Miscellaneous Supplies 1 each 11/20/22 06:00 Iv Access IV 11/20/22 23:59 DIRECTED PAT Ondansetron HCl 4 mg 11/19/22 16:37 Ondansetron 4 Mg/2 Ml Vial IVP 12/19/22 16:36 Q4H PRN PRN Nausea / Vomiting Sodium Chloride 0 ml 11/20/22 06:00 Normal Saline Flush 10 Ml Syr IV 11/20/22 23:59 PRN PRN Sodium Chloride 0 ml 11/20/22 06:00 Normal Saline 10 Ml Vial IJ 11/20/22 23:59 DIRECTED PRN Sterile Water 0 ml 11/20/22 06:00 Water,Injection,Sterile 10 Ml Vial IJ 11/20/22 23:59 DIRECTED PRN PFSH Active Problems Active Problems: Problem Status Onset Code Screen for colon cancer Z12.11 Internal hemorrhoid, bleeding K64.8 GERD (gastroesophageal reflux disease) K21.9 Trigger finger M65.30 Hyperlipidemia E78.5 HTN (hypertension) I10 Vaginal dryness 05/05/15 N89.8 Panic attacks F41.0 Palpitations R00.2 Hypothyroidism 01/13/13 E03.9 Anxiety 01/13/13 F41.9 Medical History Medical History Female infertility Carpal tunnel syndrome right surgically corrected bilateral Surgical History Surgical History H/O colonoscopy section Open Carpal Tunnel release right,left Diagnostic Laproscopy for pelvic pain Tobacco Smoking/Tobacco Use Status: Never Passive smoking exposure: Yes Second hand exposure: Yes Alcohol Alcohol Intake: current Alcohol intake frequency: holidays/special occasions only Alcohol type: beer, wine and hard liquor Substance Use Substance use: Never Substance use type: does not use Vital Signs and Lab Results Vital Signs Most Recent Vital Signs in EMR: Temp Pulse Resp BP Pulse Ox 36.6 C 84 20 130/70 100 11/20/22 09:54 11/20/22 09:54 11/20/22 09:54 11/20/22 09:54 11/20/22 09:54 Lab Results Blood Type / Crossmatch: No Data to Display Complete Blood Count: No Data to Display Complete Metabolic Panel: No Data to Display Liver Function Panel: No Data to Display Coagulation Panel: No Data to Display Cardiac Panel: No Data to Display Arterial Blood Gas: No Data to Display Venous Blood Gas: No Data to Display Pancreas Panel: No Data to Display Thyroid Panel: No Data to Display Infectious Disease: No Data to Display Blood Cultures: No Data to Display Toxicology Panel: No Data to Display Imaging and Studies Imaging and Studies Study information below may be from another EMR and interpreted by another provider. Please see original notes in EMR for more complete details. Stress Test Summary: 01/20: normal perfusion and contraction after maximal exercise. Anesthesia Assessment and Plan Anesthesia History Personal History: No History of Anesthesia Complications Family History: Family History Unknown Exercise Tolerance Exercise Tolerance: Metabolic Equivalents>4 Cardiac & Pulmonary Exam Cardiac Exam: Normal S1/S2 Heart Sounds Pulmonary Exam: Clear Bilateral Breath Sounds Implantable Cardiac Device Does patient have a Pacemaker or an ICD?: No Airway Exam Known Difficult Airway: No Mallampati Class: 2 Mouth Opening: Normal (> 3cm) Thyromental Distance: Greater than 3 cm Neck Range of Motion: Full ROM Neck Circumference: Normal Teeth Condition: Normal Dentition ASA Classification ASA Score: ASA 2 Emergency Case?: No NPO Status NPO Status: NPO Clears >2 hours, Solids >8 hours Anesthesia Plan Resuscitation Status: Full Code Anesthesia Technique: General Anesthesia Airway Planned: Natural Airway Monitors Used: Standard Monitors Preoperative Comments:: 62 yo female for colo. Sig PMHx: HTN (amlodipine, HCTZ, metoprolol), GERD, hypothyroid (levothyroxine), anxiety, never smoker, occ EtOH.
[2022-11-20 09:54] VITALS: BP 130/70; PULSE 84; RESP 20; TEMP 36.6; O2SAT 100
[2022-11-20] MEDS: Lactated Ringers 1,000 ML 80 ML IV (10:10)
[2022-11-20 10:15] VITALS: BMI 29.7
--- NOTE | 2022-11-20 10:52 | BOWEL_PTH ---
PATIENT: Valery Hendrix LOC: [facility] U#:[id number] AGE/SX: 62/F ROOM: RE11/20/[address]: Valdez Dykes MD : 1960 BED: DIS: 11/20/2022 SPEC #: [id number] RECD: 11/20/22 12:46 STATUS: SOUChao REQ #: [id number] VICKIE: 11/20/22 10:[address]: Valdez Dykes DEPT: Surgical Specimen RECD BY: Destiney Bray ENTERED: 11/20/22 12:47 SP TYPE: Bowel OTHR DR: Everett Sosa, PET CAREGIVER Tissues: 1 - BIOPSY BOWEL Procedures: GROSS AND MICRO LEVEL 4 Comments: [id number]
[2022-11-20 10:57] VITALS: BP 116/76; PULSE 75; RESP 17; TEMP 36.4; O2SAT 96
--- NOTE | 2022-11-20 11:06 | W.ANESPOSTOP ---
Postoperative Evaluation Date, Time and Location Date Performed: 11/20/22 Time Performed: 11:06 Patient Location: Day Surgery Unit Vital Signs Most Recent Imported Vital Signs: Most Recent Vital Signs Temp Pulse Resp BP Pulse Ox 36.4 C L 75 17 116/76 96 11/20/22 10:57 11/20/22 10:57 11/20/22 10:57 11/20/22 10:57 11/20/22 10:57 Pain Score Most Recent Pain Score: Most Recent Pain Score Pain Level 0 11/20/22 10:57 Assessment Mental Status: Awake (Alert & Oriented to Patient Baseline) Airway and Respiratory Function: Patent airway with normal (patient baseline) respiratory exam Cardiovascular Function: Hemodynamically Stable Hydration Status: Adequately Hydrated Nausea & Vomiting: No Nausea or Vomiting Pain: Pt. Denies Any Pain Peripheral Nerve Block: Patient did not receive a nerve block
[2022-11-20 11:26] VITALS: BP 123/101; PULSE 69; RESP 17; TEMP 36.7; O2SAT 97
== END 2022-11-20 11:45 | disposition home or self-care (01) ==
PROVIDERS: PCP Nurse Practitioner Family; Visit Provider Surgery
PROC: 0DJD8ZZ Inspection of Lower Intestinal Tract, Via Natural or Artificial Opening Endoscopic (ICD-10-PCS; CPT 45378; principal; 2022-11-20 10:30)
DX: Z12.11 Encounter for screening for malignant neoplasm of colon (principal); D12.8 Benign neoplasm of rectum; I10 Essential (primary) hypertension; K21.9 Gastro-esophageal reflux disease without esophagitis; R00.2 Palpitations; F41.0 Panic disorder [episodic paroxysmal anxiety]; K64.1 Second degree hemorrhoids
CPT/HCPCS: 45380; 88305; J2001

== ENCOUNTER 2023-02-19 05:27 | Outpatient (CLI) | payer MEDICAID, SELFPAY ==
[2023-02-19 09:57] LABS: Hemoglobin A1C 5.3 % (<5.7)
[2023-02-19 10:30] LABS: CREATININE 0.8 mg/dL (0.55-1.02); Calculated LDL 72 mg/dL (<100); Cholesterol 150 mg/dL (<200); Estimated GFR 83.78 (mL/min/1.73m2); HDL Cholesterol 58 mg/dL (40-60); Potassium 3.7 mmol/L (3.5-5.1); TSH (W/Ref FT4) 2.45 uIU/mL (0.36-3.74); Triglyceride 101 mg/dL (<150)
== END 2023-02-19 05:28 | disposition home or self-care (01) ==
LOC: LBO 05:27
PROVIDERS: PCP Nurse Practitioner Family; Visit Provider Nurse Practitioner Family
DX: I10 Essential (primary) hypertension (principal); E03.9 Hypothyroidism, unspecified; E78.5 Hyperlipidemia, unspecified; Z13.1 Encounter for screening for diabetes mellitus
CPT/HCPCS: 36415; 80061; 82565; 83036; 84132; 84443

== ENCOUNTER 2023-02-19 11:43 | Outpatient (REF) | payer MEDICAID, SELFPAY ==
--- NOTE | 2023-02-19 10:15 | PAPFT_PTH ---
PATIENT: Valery Hendrix LOC: [facility] U#:[id number] AGE/SX: 62/F ROOM: RE02/19/[address]: Amanda Conteh DO : 1960 BED: DIS: 02/19/2023 SPEC #: [id number] RECD: 02/19/23 13:19 STATUS: NAYE REQ #: [id number] VICKIE: 02/19/23 10:[address]: Amanda Conteh DEPT: [facility] Cytology RECD BY: Destiney Bray ENTERED: 02/19/23 13:19 SP TYPE: PAPFT BINH DR: Everett Sosa, SCOTT Tissues: 1 - CX/ENDOCX FOR PAP SMEARS Procedures: PAP THIN PREP/UVM Screening HPV DNA PROBE Comments: [id number]
== END 2023-02-19 11:44 | disposition home or self-care (01) ==
LOC: LBN 11:43
PROVIDERS: PCP Nurse Practitioner Family; Visit Provider Obstetrics & Gynecology
DX: Z12.4 Encounter for screening for malignant neoplasm of cervix (principal)
CPT/HCPCS: 88142; 87624

== ENCOUNTER → 2023-05-23 02:57 | Outpatient (CLI) | payer MEDICAID, SELFPAY ==
--- NOTE | 2023-05-23 08:45 | DI.MAMMO_ITS ---
Exam(s) MAMMO SCREENING EXAM: MAMMO SCREENING CLINICAL HISTORY: screening,z12.39 TECHNIQUE: Mammograms were interpreted according to the usual protocol including computer analysis w [place] [employer] CAD system, tomosynthesis and C-view imaging. COMPARISON: 2013 through 2022 FINDINGS: The breasts are composed of mainly fatty density , Breast Density category A. No suspicious masses or suspicious microcalcifications are seen. No skin thickening or abnormal axillary lymph nodes are seen. There has been no significant change from prior exams. IMPRESSION: BI-RADS Category 1, Negative mammogram Yearly screening mammography is recommended. Breast Density - Category A, fatty density. A negative radiographic report should not delay biopsy if a dominant or clinically suspicious mass is present. Up to ten percent of cancers are not identified on mammography. A negative report may reinforce clinical impression. Adenosis and dense breasts may obscure an underlying neoplasm. False positive reports average 6 to 10%. Patient will receive a letter notifying them of these results.
== END ==
PROVIDERS: PCP Nurse Practitioner Family; Visit Provider Nurse Practitioner Family
DX: Z12.31 Encounter for screening mammogram for malignant neoplasm of breast (principal); R92.313 Mammographic fatty tissue density, bilateral breasts
CPT/HCPCS: 77063; 77067

== ENCOUNTER 2024-02-22 00:54 | Outpatient (CLI) | payer MEDICAID, SELFPAY ==
[2024-02-22 11:25] LABS: Hemoglobin A1C 5.4 % (<5.7)
[2024-02-22 12:01] LABS: CREATININE 0.9 mg/dL (0.55-1.02); Calculated LDL 83 mg/dL (<100); Cholesterol 165 mg/dL (<200); Estimated GFR 72.28 (mL/min/1.73m2); HDL Cholesterol 63 mg/dL (40-60); TSH (W/Ref FT4) 3.43 uIU/mL (0.36-3.74); Triglyceride 96 mg/dL (<150)
== END 2024-02-22 00:55 | disposition home or self-care (01) ==
LOC: LBO 00:54
PROVIDERS: PCP Nurse Practitioner Family; Visit Provider Nurse Practitioner Family
DX: Z13.220 Encounter for screening for lipoid disorders (principal); E78.2 Mixed hyperlipidemia; I10 Essential (primary) hypertension; Z13.1 Encounter for screening for diabetes mellitus; E03.9 Hypothyroidism, unspecified
CPT/HCPCS: 36415; 80061; 82565; 83036; 84443

== ENCOUNTER 2024-06-09 00:30 | Outpatient (CLI) | payer MEDICAID, SELFPAY ==
--- NOTE | 2024-06-09 09:10 | DI.MAMMO_ITS ---
Exam(s) MAMMO SCREENING EXAM: MAMMO SCREENING CLINICAL HISTORY: screening. TECHNIQUE: Bilateral full field digital CC and MLO mammographic images were obtained with 3D tomosyn thesis and utilizing computer aided detection (CAD). COMPARISON: Prior mammograms were reviewed. FINDINGS: There has been no significant change in the appearance and distribution of the fibroglandular tissue. There are no CAD designations. There are no new spiculated masses nor malignant appearing microcalcification groups. Benign calcified oil cyst in right breast is unchanged. There is no significant architectural distortion nor skin thickening-retraction. IMPRESSION: No radiographic evidence of malignancy. BI-RADS Category 1 - Negative Breast Density - Category A - The breast are almost entirely fatty. Breast density Category C or D implies that the patient has dense breast tissue. Dense breast tissue can make it harder to find cancer on a mammogram. Dense breast tissue is also associated with an incr eased risk of breast cancer. This information about the result of the mammogram report was provided to the patient to raise their awareness. Use this report when you speak with the patient about their risks for breast cancer, which includes their family history. At that time, you may recommend additional screening tests (Ultrasoun d or MRI) as these tests may add significant information. A negative radiographic report should not delay biopsy if a dominant or clinically suspicious mass is present. Up to ten percent of cancers are not identified on mammography. A negative report may reinforce clinical impression. Adenosis and dense breasts may obscure an underlying neoplasm. False positive reports average 6 to 10%. Patient will receive a letter notifying them of these results.
== END 2024-06-09 00:50 ==
LOC: DI 00:30
PROVIDERS: PCP Nurse Practitioner Family; Visit Provider Obstetrics & Gynecology
DX: Z12.31 Encounter for screening mammogram for malignant neoplasm of breast (principal); R92.313 Mammographic fatty tissue density, bilateral breasts
CPT/HCPCS: 77063; 77067

== ENCOUNTER 2024-07-07 02:58 | Outpatient (CLI) | payer MEDICAID, SELFPAY ==
--- NOTE | 2024-07-07 06:45 | DI.MRI_ITS ---
Exam(s) MR UPPER JOINT LT WO EXAM: MR UPPER JOINT LT WO CLINICAL HISTORY: Worsening pain/failing PT,lt shoulder pain,m25.512. TECHNIQUE: Multiplanar multisequence MRI was performed. COMPARISON: No exams were available for comparison FINDINGS: There is slight patient motion artifact. BONES: There is no fracture or contusion pattern. There is marrow edema seen in the surgical neck and diaphysis of the humerus. The area in the surgical neck has a somewhat rounded appearance. No brissa ical disruption or soft tissue mass is associated. JOINTS: There are degenerative changes seen at the acromioclavicular joint which are mild. The gleno humeral joint is normal. TENDONS: Supraspinatus: There is tendinosis of the supraspinatus tendon without evidence of a aleshia tear. Infraspinatus: There is hyperintense signal seen at the insertion site of the infraspinatus tendon wh ich may represent a partial tear. There is underlying tendinosis. Subscapularis: There is tendinosis of the subscapularis tendon. Teres [place]: Unremarkable. Biceps and [place]: There is tendinosis of the long head of the biceps. MUSCLES: Unremarkable. GLENOID LABRUM: Unremarkable on this noncontrast examination. SOFT TISSUES: Unremarkable. LIGAMENTS: Unremarkable. OTHER: There is a small amount of fluid in the subacromial subdeltoid bursa. IMPRESSION: 1. Mild hyperintense signal seen at the insertion site of the infraspinatus tendon which may represen t a partial tear. 2. Tendinopathy involving the supraspinatus, infraspinatus, long head of the biceps and subscapularis tendons. 3. Questionable abnormal signal seen in the surgical neck and proximal diaphysis of the left humerus. Correlation with x-rays of the left humerus is recommended. An MRI of the humerus without and with contrast should also be obtained for further characterization. 4. Small amount of fluid in the subacromial subdeltoid bursa which may represent a bursitis. DATA REPOSITORY:
== END 2024-07-07 03:18 ==
LOC: DI 02:58
PROVIDERS: PCP Nurse Practitioner Family; Visit Provider Nurse Practitioner Family
DX: M25.512 Pain in left shoulder (principal); R93.89 Abnormal findings on diagnostic imaging of other specified body structures
CPT/HCPCS: 73221

== ENCOUNTER 2024-07-16 02:05 | Outpatient (CLI) | payer MEDICAID, SELFPAY ==
--- NOTE | 2024-07-16 07:15 | DI.RAD_ITS ---
Exam(s) XR HUMERUS LT EXAM: XR HUMERUS LT CLINICAL HISTORY: F/U CT,LT HUMERAL LESION,N89.9,DISORDER OF BONE. TECHNIQUE: 2D digital imaging was performed of the left humerus. Two images were obtained. AP and lateral views were obtained. COMPARISON: MR MR UPPER JOINT LT WO from 07/07/2024 FINDINGS: BONES: No acute fracture is present. No bony destructive lesion is seen. No definite lytic or sclerot ic lesion is seen. There is no periosteal reaction. No cortical disruption is seen. SOFT TISSUE: Normal. IMPRESSION: No definite lytic or sclerotic lesion is seen in the proximal humerus to correspond to the MRI findin g. An MRI of the humerus without and with contrast should be considered for further characterization . DATA REPOSITORY: RADIATION DOSE DELIVERED:
== END 2024-07-16 02:25 ==
LOC: DI 02:05
PROVIDERS: PCP Nurse Practitioner Family; Visit Provider Nurse Practitioner Family
DX: R93.89 Abnormal findings on diagnostic imaging of other specified body structures (principal)
CPT/HCPCS: 73060

== ENCOUNTER 2024-07-29 02:15 | Outpatient (CLI) | payer MEDICAID, SELFPAY ==
[2024-07-29] MEDS: Gadoterate meglumine 20 ML VIAL 15 ML IVP (08:32)
[2024-07-29] MEDS: Normal Saline Flush 10 ML SYR IJ (08:38)
--- NOTE | 2024-07-29 09:30 | DI.MRI_ITS ---
Exam(s) MR UPPER EXTREMITY LT WO/W CLINICAL HISTORY: f/u ct,lt humeral lesion,M89.9. TECHNIQUE: Multiplanar multisequence MRI Examination was performed. CONTRAST MATERIAL: IV Contrast: 15 mL of Dotarem contrast administered. COMPARISON: MRI of the shoulder 07 July 2024. Plain films of the humerus 16 July 2024. FINDINGS: Bones: There is no fracture or contusion pattern. No bone marrow edema is present on T1 images, there is inhomogeneous low signal from the humeral metaphysis through the distal diaphysis. It is mildly hyperintense on T2- weighted imaging. There is mild enhancement following IV gadolinium. No focal lesion or expansion is seen. Findings are consistent with is homogeneous, patchy red marrow reconversion. Musculotendinous structures: There is no muscular edema, myositis or focal collection. There is no evidence of suspicious enhancement. IMPRESSION: Marrow findings in the humerus are consistent with red marrow reconversion. DATA REPOSITORY:
== END 2024-07-29 02:35 ==
LOC: DI 02:16
PROVIDERS: PCP Nurse Practitioner Family; Visit Provider Nurse Practitioner Family
DX: M89.8X6 Other specified disorders of bone, lower leg (principal)
CPT/HCPCS: 73220

== ENCOUNTER 2024-08-05 12:59 | Outpatient (CLI) | payer MEDICAID, SELFPAY ==
[2024-08-05 10:20] LABS: Abs Immature Grans 0.02 10^3/uL (0.0-0.06); HCT 41.4 % (36.0-46.0); HGB 14.0 g/dL (11.2-15.7); Immature Grans % 0.3 %; MCH 27.9 pg (27.0-33.0); MCHC 33.8 % (32.0-36.0); MCV 83 fL (80-95); MPV 11.5 fL (8.0-11.0); Platelet Count 259 10^3/uL (130-400); RBC 5.01 10^6/uL (3.93-5.22); RDW 13.2 % (11.7-14.6); RDW-SD 39.8 fL; WBC 7.43 10^3/uL (4.4-10.8)
[2024-08-05 11:05] LABS: ALT 40 U/L (14-59); AST 22 U/L (15-37); Albumin 4.2 g/dL (3.4-5.0); Alkaline Phosphatase 121 U/L (46-116); Anion Gap 4.9 mmol/L (3-11); BUN 19 mg/dL (7-18); Bilirubin, Total 0.4 mg/dL (0.2-1.0); CO2 33.1 mmol/L (21.0-32.0); Calcium 9.6 mg/dL (8.5-10.1); Chloride 102 mmol/L (98-107); Estimated GFR 97.12 (mL/min/1.73m2); Ferritin 75 ng/mL (8-252); Glucose 96 mg/dL (74-106); Potassium 3.9 mmol/L (3.5-5.1); Sodium 140 mmol/L (136-145); TSH (W/Ref FT4) 2.06 uIU/mL (0.36-3.74); Total Protein 8.0 g/dL (6.4-8.2); Vitamin B12 584 pg/mL (193-986)
[2024-08-05 11:09] LABS: Iron 53 ug/dL (50-170); Total Iron Binding Capacity 364 ug/dL (250-450)
[2024-08-06 08:47] LABS: Transferrin 275 mg/dL (201-352)
== END 2024-08-05 13:00 | disposition home or self-care (01) ==
LOC: LBO 12:59
PROVIDERS: PCP Nurse Practitioner Family; Visit Provider Nurse Practitioner Family
DX: D50.9 Iron deficiency anemia, unspecified (principal)
CPT/HCPCS: 36415; 80053; 82607; 82728; 83540; 83550; 84443; 84466; 85025

== ENCOUNTER 2024-09-02 13:55 | Outpatient (CLI) | payer MEDICAID, SELFPAY ==
--- NOTE | 2024-09-02 10:30 | DI.RAD_ITS ---
Exam(s) XR SHOULDER LT COMPLETE 2+V EXAM: XR SHOULDER LT COMPLETE 2+V CLINICAL HISTORY: LEFT SHOULDER PAIN. TECHNIQUE: 2D digital imaging was performed. Two views. COMPARISON: CR XR HUMERUS LT from 07/16/2024 FINDINGS: BONES: No acute fracture is present. No bony destructive lesion is seen. Spurring at the lesser tuberosity. JOINTS: No dislocation present. No humeral joint space is maintained. AC joint is not well profiled. No significant inferior spurring. SOFT TISSUE: Normal. IMPRESSION: Mild degenerative changes. DATA REPOSITORY: RADIATION DOSE DELIVERED:
== END 2024-09-02 13:56 | disposition home or self-care (01) ==
LOC: DIORS 13:55
PROVIDERS: PCP Nurse Practitioner Family; Visit Provider Physician Assistant
DX: M25.512 Pain in left shoulder (principal); M19.012 Primary osteoarthritis, left shoulder
CPT/HCPCS: 73030

== ENCOUNTER 2024-09-16 13:17 | Outpatient (CLI) | payer MEDICAID, SELFPAY ==
--- NOTE | 2024-09-16 08:30 | DI.US_ITS ---
Exam(s) US LOWER EXTREMITY VENOUS LT EXAM: US LOWER EXTREMITY VENOUS LT CLINICAL HISTORY: Left lower leg edema since plane trip, R/O DVT, R60.0. TECHNIQUE: Lower extremity venous ultrasound performed using grayscale, color- flow, and spectral Doppler analysis. COMPARISON: No exams were available for comparison FINDINGS: The common femoral, femoral and popliteal veins demonstrate normal compressibility, augmentation, and color Doppler. The posterior tibial and peroneal veins are patent. No saphenous vein thrombosis or other superficial venous thrombosis is seen. No hematoma or Austin's cyst is seen. IMPRESSION: Negative lower extremity ultrasound. No evidence of DVT. DATA REPOSITORY:
== END 2024-09-16 13:37 ==
PROVIDERS: PCP Nurse Practitioner Family; Visit Provider Family Medicine
DX: R60.0 Localized edema (principal)
CPT/HCPCS: 93971